=== PATIENT | female | born 1995 | race Caucasian/White ===

== ENCOUNTER 2018-05-12 13:03 | Emergency (ER) | payer MEDICAID ==
[2018-05-12 13:21] VITALS: PULSE 74; O2SAT 99
--- NOTE | 2018-05-12 13:47 | ERPHSYRPT ---
- History of Present Illness Time Seen by Provider: 05/12/18 13:40 Source: patient Exam Limitations: no limitations (the) Patient Subjective Stated Complaint: here for both eyes swelling for a week now, Triage Nursing Assessment: pt alert, walked in, resp easy,skin w/d/p. has swelling to both eyes Physician History: The patient is a 22-year-old female with a friend complaining that she has a upper and lower eyelid swelling in both eyes began one week ago. The eyelids itch. She took Benadryl without relief. She denies any visual changes. The eyes are not red. She has not used any new makeup products. She denies cough or runny nose. She denies fever. Location: bilateral eyes Severity: mild Apparent Injury: no Associated Symptoms: itching (eyelids), other (swelling eyelids) Allergies/Adverse Reactions: No Known Drug Allergies Allergy (Verified 05/12/18 13:21) Hx Tetanus, Diphtheria Vaccination/Date Given: Yes Hx Influenza Vaccination/Date Given: No Hx Pneumococcal Vaccination/Date Given: No Immunizations Up to Date: Yes - Review of Systems Constitutional: No Fever, No Chills Eyes: Other (eyelid itching and swelling) Ears, Nose, & Throat: No Symptoms Respiratory: No Cough, No Dyspnea Cardiac: No Chest Pain, No Edema, No Syncope Abdominal/Gastrointestinal: No Abdominal Pain, No Nausea, No Vomiting, No Diarrhea Genitourinary Symptoms: No Dysuria Musculoskeletal: No Back Pain, No Neck Pain Skin: No Rash Neurological: No Dizziness, No Focal Weakness, No Sensory Changes Psychological: No Symptoms Endocrine: No Symptoms Hematologic/Lymphatic: No Symptoms Immunological/Allergic: No Symptoms All Other Systems: Reviewed and Negative - Past Medical History Pertinent Past Medical History: No - Past Surgical History Past Surgical History: Yes Gastrointestinal: Appendectomy - Social History Smoking Status: Never smoker Exposure to second hand smoke: No Drug Use: none Patient Lives Alone: No - Female History Hx Last Menstrual Period: 3 weeks ago Hx Now: No - Nursing Vital Signs Nursing Vital Signs: Initial Vital Signs Temperature 97.8 F 05/12/18 13:17 Pulse Rate 74 05/12/18 13:17 Respiratory Rate 16 05/12/18 13:17 Blood Pressure 135/77 05/12/18 13:17 O2 Sat by Pulse Oximetry 99 05/12/18 13:17 Pain Scale Pain Intensity 0 - Physical Exam General Appearance: no apparent distress Eye Exam: bilateral eye: PERRL, EOMI, eyelid inflammation (swelling and redness) Ears, Nose, Throat Exam: normal ENT inspection Neck Exam: normal inspection Respiratory Exam: normal breath sounds Cardiovascular Exam: regular rate/rhythm Gastrointestinal Exam: soft Extremity Exam: normal inspection Neurologic: alert Skin Exam: normal color SpO2 Interpretation: normal SpO2: 99 Oxygen Delivery: Room Air - Departure Time of Disposition: 13:51 Departure Disposition: Home Clinical Impression: Cellulitis Condition: Stable Critical Care Time: No Referrals: ARTUR OSEGUERA [Primary Care Provider] - Additional Instructions: You have a skin infection in your upper and lower eyelids of both eyes. Take Augmentin 875 one tablet 2 times a day for 10 days. Take Benadryl 25-50 mg every 2-4 hours to reduce itching and swelling. Follow-up with your primary medical doctor on Monday. Prescriptions: Amox Tr/Potass Clav. 875 mg [Augmentin 875-125 Tablet] 875 mg PO BID #20 tablet
[2018-05-12 14:10] VITALS: BP 110/62
== END 2018-05-12 14:08 | disposition home or self-care (01) ==
LOC: ED 13:03
DX: H00.035 Abscess of left lower eyelid (principal); H00.034 Abscess of left upper eyelid; H00.032 Abscess of right lower eyelid; H00.031 Abscess of right upper eyelid
CPT/HCPCS: 99283